=== PATIENT | female | born 1990 | race Two or more races ===

== ENCOUNTER 2025-03-04 13:41 | Outpatient (AMB) | payer MEDICARE, SELFPAY ==
[2025-03-04 13:56] VITALS: BP 124/78; PULSE 74; RESP 16; TEMP 36.8; O2SAT 98; BMI 31.4
--- NOTE | 2025-03-04 13:56 | GYNCLNT_ITS ---
Vital Signs 03/04/25 13:56 Height 1.57 m Height Method Stated Weight 78.075 kg Weight Measurement Method Standing Scale BMI 31.4 BP 124/78 Blood Pressure Source Automatic Cuff Blood Pressure Location Left Upper Arm Position Sitting Respiration 16 Pulse 74 Pulse Source Monitor Temp 98.2 F Temp Source Oral Pulse Oximetry (%) 98 Oxygen Delivery Method Room Air Allergies/Home Meds Allergies & Medications Allergies No Known Allergies Allergy (Unknown, Verified 03/04/25 13:58) Medication Reconciliation No Known Home Medications 03/04/25 [History Confirmed 03/04/25] Intake Visit Data Collection New Patient or Established: Established Patient (seen at [facility] within 3 years) Reason for Visit:: NEXPLANNON INSERTION AND REMOVAL CONSULT Seen by Clinical Staff ONLY (RN/MA): No Hotel Desk Clerk Required: No Do You Feel Safe at Home: Yes Authorities Contacted: N/A PCP or OBGYN visit in last 3 months: Yes Hx Now: No Are you currently on any form of Control: Yes Last menstrual period: 01/15/25 Pain Present Currently: No Pain Scale Used: [place]/Numerical Pain scale:: 0 Smoking Status Smoking Status: Never smoker 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 1. Little interest or pleasure in doing things: not at all 2. Feeling down, depressed, or hopeless: not at all Total score: 0 PHQ-9 3. Trouble falling or staying asleep, or sleeping too much: Not at all 4. Feeling tired or having little energy: Not at all 5. Poor appetite or overeating: Not at all 6. Feeling bad about yourself - or that you are a failure or have let yourself or your family down: Not at all 7. Trouble concentrating on things, such as reading the newspaper or watching television: Not at all 8. Moving or speaking so slowly that other people could have noticed? - Or the opposite - being so fidgety or restless that you have been moving around a lot more than usual: not at all 9. Thoughts that you would be better off or of hurting yourself in some way : Not at all Total score: 0 Source: Developed by Drs. Ming Bailey, Brielle Cavanaugh, Maurisio Rudd and colleagues, with an educational carlito from [employer]. Depression screen completed yes Social History Living Situation History Lives With: Family Housing: House Tobacco History Smoking Status: Never smoker Second Hand Smoke Exposure: No Alcohol History Alcohol Intake: Current Alcohol Intake Frequency: holidays/special occasions only Domestic Abuse History Do You Feel Safe at Home: Yes History of Present Illness HPI Narrative Deirdre Vasquez, a patient with a history of two C-sections, presents for removal and replacement of her Nexplanon device. The patient had the Nexplanon placed in January 2022, and it is now due for replacement as it has reached its three-year expiration date. The patient reports that the Nexplanon has been working well for her overall, with no major issues. However, she has experienced irregular periods, which is noted to be a common side effect of progesterone-only control methods like Nexplanon. Despite this, the patient expresses satisfaction with the method and wishes to continue with a new Nexplanon device. The patient denies any other long-term medical complications. She is currently employed at the [employer], where she has been working for six years. Surgical History: - section (2 times) - Nexplanon placement in January 2022 Obstetric History: - GPAL: A0 L2 - Two previous pregnancies, both resulting in deliveries - Current children: 12-year-old and 9-year-old Social History: - Works at [employer] for 6 years - Has two children, ages 9 and 12 Exam General General Appearance: alert, in no apparent distress and healthy appearing Head Head exam: atraumatic Neck Neck exam: Present normal inspection and trachea midline Chest Chest inspection: Present normal inspection and symmetric chest wall rise External exam: Present normal external exam; Absent tenderness Neuro Neurological exam: Present oriented X3 Psych Psychiatric exam: Present normal affect and normal mood Assessment & Plan Diagnosis / Problem List (1) Other specified contraceptive management: Status: Acute Plan Contraception management Assessment: Patient has been using Nexplanon for contraception since January 2022 with no major issues reported. She experiences irregular periods, which is a common side effect of progesterone-only contraceptives. The current Nexplanon device has reached its FDA-approved 3-year duration and requires replacement. Patient desires to continue with this method of contraception. Plan: - Order new Nexplanon device - Schedule follow-up appointment for Nexplanon removal and insertion once device arrives (estimated within 2 weeks) - Advise use of condoms for contraception until new Nexplanon is placed - Obtain informed consent for Nexplanon removal and insertion procedure at next visit - Submit insurance authorization for the procedure
== END 2025-03-04 14:14 | disposition home or self-care (01) ==
LOC: HODSOBC 13:41
PROVIDERS: Supervising Provider Obstetrics & Gynecology; Visit Provider Obstetrics & Gynecology
DX: Z30.46 Encounter for surveillance of implantable subdermal contraceptive (principal)
CPT/HCPCS: 99214; G0463

== ENCOUNTER 2025-03-25 10:17 | Outpatient (AMB) | payer MEDICARE, SELFPAY ==
--- NOTE | 2025-03-25 10:39 | AMB.GYNCLNOT ---
Vital Signs 03/25/25 10:42 Height 1.57 m Height Method Stated Weight 78.075 kg Weight Measurement Method Standing Scale BMI 31.6 BP 118/76 Blood Pressure Source Automatic Cuff Blood Pressure Location Right Upper Arm Position Sitting Respiration 17 Pulse 64 Pulse Source Monitor Temp 97.8 F Temp Source Temporal Artery Scan Pulse Oximetry (%) 98 Oxygen Delivery Method Room Air Allergies/Home Meds Allergies & Medications Allergies No Known Allergies Allergy (Unknown, Verified 03/04/25 13:58) Intake Visit Data Collection New Patient or Established: Established Patient (seen at [facility] within 3 years) Reason for Visit:: NEXPLANON REMOVAL AND REINSERT Seen by Clinical Staff ONLY (RN/MA): No Toll Gate Keeper Required: No Do You Feel Safe at Home: Yes Authorities Contacted: N/A PCP or OBGYN visit in last 3 months: Yes Date of Last PCP or OBGYN visit: 03/04/25 Hx Now: No Are you currently on any form of Control: Yes Last menstrual period: 01/15/25 Pain Present Currently: No Pain Scale Used: [place] Torre/Numerical Pain scale:: 0 Smoking Status Smoking Status: Never smoker 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 1. Little interest or pleasure in doing things: not at all 2. Feeling down, depressed, or hopeless: not at all Total score: 0 PHQ-9 3. Trouble falling or staying asleep, or sleeping too much: Not at all 4. Feeling tired or having little energy: Not at all 5. Poor appetite or overeating: Not at all 6. Feeling bad about yourself - or that you are a failure or have let yourself or your family down: Not at all 7. Trouble concentrating on things, such as reading the newspaper or watching television: Not at all 8. Moving or speaking so slowly that other people could have noticed? - Or the opposite - being so fidgety or restless that you have been moving around a lot more than usual: not at all 9. Thoughts that you would be better off or of hurting yourself in some way: Not at all Total score: 0 If you checked off any problems, how difficult have these problems made it for you to do your work, take care of things at home, or get along with other people?: not difficult at all Source: Developed by Drs. Ming Bailey, Brielle Cavanaugh, Maurisio Rudd and colleagues, with an educational carlito from [employer]. Depression screen completed yes Social History Living Situation History Marital Status: Lives With: Family Housing: House Tobacco History Smoking Status: Never smoker Second Hand Smoke Exposure: No Alcohol History Alcohol Intake: Current Alcohol Intake Frequency: holidays/special occasions only Domestic Abuse History Do You Feel Safe at Home: Yes History of Present Illness HPI Narrative Nexplanon removal and re-insertion Deirdre Vasquez presents for Nexplanon removal and re-insertion. The patient has previously undergone this procedure, as evidenced by multiple insertion sites noted on examination. The patient reports experiencing significant bruising at the insertion site with previous Nexplanon placements, describing it as horribly bruised and black every time. No other complications or side effects from the previous Nexplanon implants are mentioned. The patient appears familiar with the procedure, demonstrating understanding of the steps involved. The patient signed the consent form prior to the appointment, indicating preparedness and willingness to proceed with the procedure. No changes in overall health status or new symptoms are reported. 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 [employer] Exam General General Appearance: alert, in no apparent distress and healthy appearing Head Head exam: atraumatic Neck Neck exam: Present normal inspection and trachea midline Chest Chest inspection: Present normal inspection and symmetric chest wall rise External exam: Present normal external exam; Absent tenderness Neuro Neurological exam: Present oriented X3 Psych Psychiatric exam: Present normal affect and normal mood Office Procedures OBC Clinic LOC & Office Proc's Nursing/Assessment Patient Status: Established Patient OB Clinic Nursing Assessment: Medication Reconciliation, Update PMH in EMR and Vital Signs OB Clinic Coordination of Care: Complex Care and Chronic Disease 1-5, Education Complex Pt/Fam, Consent,records obtained, informed consent, Results/Orders obtained and Staff clarify orders Miscellaneous Interventions: Blood/Urine Collection Established Patient Charge Established Patient Point Assignment: 125 Established Patient Point Charge: EP Level 4 (120-155) In Clinic Bedside tests/procedures Bedside HCG: Yes In Clinic Procedures Minor Surgical Procedure: Yes Results Urine HCG Urine HCG Negative Last Edit by Radha Zaidi MA on 03/25/25 10:45 Assessment & Plan Diagnosis / Problem List (1) Other specified contraceptive management: Status: Acute Plan Nexplanon removal and re-insertion Assessment: Patient presented for routine Nexplanon removal and replacement. The existing implant was visible and superficially placed in the left arm, facilitating easy removal. The procedure was performed under local anesthesia with lidocaine injection. Both removal of the old implant and insertion of the new implant were completed through the same incision site without complications. 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 A timeout was performed to confirm patient identity, procedure, and site.The existing subdermal implant was palpated and identified in the medial aspect of the upper arm. The skin overlying the distal end of the implant was infiltrated with 1% lidocaine for local anesthesia. A small transverse incision was made over the distal tip using a #11 blade. A hemostat was gently advanced through the incision to grasp and deliver the implant. The implant was removed intact and inspected to confirm completeness. Through the same incision, the new implant was introduced using the resaw operator?s insertion device. The applicator was advanced subdermally and deployed per protocol. Correct placement was confirmed by palpation of the implant just beneath the skin surface. Hemostasis was satisfactory. The incision was approximated with a sterile adhesive bandage, and a pressure/compression dressing was applied. The patient tolerated the procedure well and remained hemodynamically stable throughout. Post-procedure care instructions were reviewed, including wound care, monitoring for signs of infection, and when to seek medical attention.
[2025-03-25 10:42] VITALS: BP 118/76; PULSE 64; RESP 17; TEMP 36.6; O2SAT 98; BMI 31.6
== END 2025-03-25 11:12 | disposition home or self-care (01) ==
PROVIDERS: Supervising Provider Obstetrics & Gynecology; Visit Provider Obstetrics & Gynecology
DX: Z30.46 Encounter for surveillance of implantable subdermal contraceptive (principal); Z32.02 Encounter for pregnancy test, result negative
CPT/HCPCS: 11983; 81025; 96372; 99214; J3490; J7301; G0463